=== PATIENT | female | born 1950 | race Caucasian/White ===

== ENCOUNTER → 2016-11-10 | Outpatient (CLI) | payer MEDICARE ==
[2014-10-01 20:41] VITALS: BP 164/73
--- NOTE | 2016-11-10 13:23 | KCIC ---
Bone mineral density exam History: Postmenopausal, osteopenia Comparison: 12/05/2013 Findings: Bone mineral density examination utilizing DEXA was performed. Left hip bone mineral density of 0.693 g/cm2 corresponds with a T score -2.0, Z score -0.6. Compared with previous exam, there has been -2.4% decrease. The bone mineral density of the lumbar spine was 0.822 g/cm2 which corresponds with a T-score of -2.0 . The age matched Z-score is -0.1 . Compared with the previous exam, there has been 2.5% increase. By World Congress on Osteoporosis criteria, a T score of 0 to-1 SD is considered to be within normal limits. A T score of -1 to -2.5 SD is considered osteopenia. A T score less than -2.5 SD is considered osteoporosis Impression: 1. There is osteopenia of the left hip and the lumbar spine. Electronically signed by: Levy Zhang MD (11/10/2016 1:20 PM) [id number]
--- NOTE | 2016-11-10 16:17 | KCIC ---
Bilateral digital screening mammograms: Reason for examination: Routine screening. Comparison is made to previous studies dated 03/29/2007 and 12/05/2013. The skin and nipples show no abnormalities. No abnormal axillary lymph nodes are seen. The breast parenchyma shows scattered fibroglandular density. (Breast density: Category B.) There continues to be some asymmetric parenchyma in the subareolar 12:00 position of the left breast which is unchanged. There are no new dominant masses, suspicious calcifications or architectural distortions. Some benign calcifications are present. Impression: No evidence of malignancy. Recommend routine screening. BI-RADS category 2: Benign "Our facility is accredited by the [employer] Mammography [employer]." This patient's information has been entered into a reminder system for the patient to be notified with the results of her examination and a target date for the next mammogram. Electronically signed by: Porsha Kapoor MD (11/10/2016 4:14 PM) [id number]
== END | disposition home or self-care (01) ==
LOC: KCIC MAMMO 12:38
PROVIDERS: ATTEND Family Medicine
DX: Z12.31 Encounter for screening mammogram for malignant neoplasm of breast (principal); N64.89 Other specified disorders of breast; M85.80 Other specified disorders of bone density and structure, unspecified site; Z78.0 Asymptomatic menopausal state
CPT/HCPCS: 77080; G0202; 77067

== ENCOUNTER → 2017-11-11 | Outpatient (CLI) | payer MEDICARE, OTHER ==
[2014-10-01 20:41] VITALS: BP 164/73
--- NOTE | 2017-11-11 11:58 | KCIC ---
Bilateral digital screening mammograms: Reason for examination: Routine screening. Comparison is made to previous studies dated 11/10/2016 and 12/05/2013. Interpretation was made with the benefit of CAD. The skin and nipples show no abnormalities. No abnormal axillary lymph nodes are seen. The breast parenchyma shows scattered fibroglandular density. (Breast density: Category B.) There are no dominant masses, suspicious calcifications or architectural distortions. Benign appearing calcifications are again seen. Impression: No evidence of malignancy. Recommend routine screening. BI-RADS Category 2: Benign. "Our facility is accredited by the [employer] Mammography [employer]." This patient's information has been entered into a reminder system for the patient to be notified with the results of her examination and a target date for the next mammogram. Electronically signed by: Porsha Kapoor MD (11/11/2017 11:54 AM) [id number]
== END | disposition home or self-care (01) ==
LOC: KCIC MAMMO 09:02
PROVIDERS: ATTEND Family Medicine
DX: Z12.31 Encounter for screening mammogram for malignant neoplasm of breast (principal); Z72.0 Tobacco use; Z90.710 Acquired absence of both cervix and uterus
CPT/HCPCS: 77067

== ENCOUNTER → 2020-06-08 | Outpatient (CLI) | payer OTHER ==
[2014-10-01 20:41] VITALS: BP 164/73
[~2020-06-08] MED LIST: LEVO112T49 PO; TRAZ-118 PO; UMEC1DIS IH
[2020-06-08] MEDS: IOHEXOL 300 MG/ML 100ML VIAL. IV ONE (10:03)
[2020-06-08] MEDS: IOHEXOL 240 MG/ML 50ML VIAL. PO ONE (10:04)
--- NOTE | 2020-06-08 10:52 | KCIC ---
EXAM: Abdomen and pelvis CT with intravenous contrast. HISTORY: Incisional hernia. TECHNIQUE: Computed tomographic images of the abdomen and pelvis were obtained following the administ ration of intravenous contrast. Multiplanar reformatting was performed. *One or more of the following individualized dose reduction techniques were utilized for this examina tion: 1. Automated exposure control. 2. Adjustment of the mA and/or kV according to patient size. 3. Use of iterative reconstruction technique. COMPARISON: None. FINDINGS: Evaluation of the lower thorax demonstrates peripheral predominant pleural parenchymal scar ring and atelectasis. No consolidation or pleural effusion is seen. There is a 3 mm nodular opacity w ithin the medial lingula which is likely due to adjacent scarring. No suspicious nodule is seen. Ther e is a tiny hiatal hernia. The heart is normal in size. No hepatic lesion is seen. The gallbladder, p ancreas, spleen, adrenal glands and kidneys are unremarkable. There is no appendicitis. There is a large amount of stool throughout the colon. There is sigmoid div erticulosis. The bladder is nearly empty. The uterus is absent. The ovaries are unremarkable. There is a fat-containing right inguinal hernia. The hernia sac measures 6.0 cm transaxially and the hernia defect measures approximately 2.3 cm transaxially. There is extension of a loop of small bowel to the hernia defect. However, the bowel does not herniate through the defect. There is no mechanica l obstruction or convincing incarceration. There is aortic and aortic branch vessel atherosclerosis. There is no lymphadenopathy. There are dege nerative changes throughout the spine. There is no suspicious osseous lesion. There are few benign [place]. IMPRESSION: 1. Moderate fat-containing right inguinal hernia. The hernia sac measures approximate 6.0 cm. There i s a loop of small bowel which extends to the hernia defect, but not through the hernia defect into th e hernia sac. There is no incarceration or mechanical obstruction. 2. Large amount of colonic stool. Correlate for constipation. 3. Sigmoid diverticulosis. 4. Tiny hiatal hernia. Electronically signed by: Camila Bynum MD (06/08/2020 10:50 AM) [id number]
== END ==
LOC: KCIC CT 08:05
PROVIDERS: ATTEND Surgery
DX: K40.90 Unilateral inguinal hernia, without obstruction or gangrene, not specified as recurrent (principal); K43.2 Incisional hernia without obstruction or gangrene; K57.30 Diverticulosis of large intestine without perforation or abscess without bleeding; K44.9 Diaphragmatic hernia without obstruction or gangrene
CPT/HCPCS: 74177; Q9966; Q9967

== ENCOUNTER 2020-07-27 08:00 | Day surgery (SDC) | payer MEDICARE, OTHER ==
[~2020-07-27] VITALS: Ht 157.5 cm; Wt 125.0 kg
[~2020-07-27 08:00] MED LIST changes: +ACETAMINOPHEN 500 MG TABLET PO PRN; +BUPIVACAINE-EPI 0.25% 30 ML VIAL KIT. ONE; +CALC-450 PO; +DIPH25CA58 PO; +HYDROmorphone 2 MG/ML VIAL IVP PRN; +IBUP-1027 PO; +IV RINGERS,LACTATED 1000ML 1,000 ML IV SCH; +LANS15CA5 PO; +MAGN400C PO; +MELA10TA3 PO; +MINERAL OIL for SURGERY 10 ML VIAL. MC ONE; +POLY17PO29 PO; +POTA8TAB46 PO; +PROVENTIL HFA6.7 G2 INH; +TIOT4MIS3 IH; +fentaNYL PF VIAL 100 MCG/2 ML VIAL IVP PRN; +levoFLOXacin 500mg PREMIX BAG. IV ONE
[2020-07-27 08:28] VITALS: BP 126/60
--- NOTE | 2020-07-27 09:21 | PDOC1 ---
History and Physical Date of Admission Date of Admission DATE: 07/27/20 TIME: 09:18 Identification/Chief Complaint Chief Complaint Right lower quadrant abdominal pain Source Source: Patient History of Present Illness History of Present Illness 69-year-old female with complaints of right lower quadrant abdominal pain CT scan showing right inguinal hernia with incarcerated small bowel. No evidence of obstruction Past Medical History Cardiovascular: No pertinent hx Pulmonary: COPD GI: No pertinent hx Heme/Onc: No pertinent hx Hepatobiliary: No pertinent hx Psych: No pertinent hx Rheumatologic: No pertinent hx Infectious disease: No pertinent hx ENT: No pertinent hx Renal/: No pertinent hx Endocrine: Hypothyroidism Dermatology: No pertinent hx Past Surgical History Past Surgical History: , Hysterectomy Family History Family History: No Significant Social History Smoke: Quit ALCOHOL: rare Drugs: None Current Medications Current Medications Current Medications Fentanyl Citrate (Fentanyl 2ml Vial) 25 mcg PRN Q5MIN PRN IVP MILD PAIN 1-3; Start 07/27/20 at 06:00; Stop 07/28/20 at 05:59 Fentanyl Citrate (Fentanyl 2ml Vial) 50 mcg PRN Q5MIN PRN IVP MODERATE PAIN 4- 6; Start 07/27/20 at 06:00; Stop 07/28/20 at 05:59 Morphine Sulfate (Morphine Sulfate) 1 mg PRN Q10MIN PRN IVP SEVERE PAIN 7-10; Start 07/27/20 at 06:00; Stop 07/28/20 at 05:59 Ringer's Solution 1,000 ml @ 30 mls/hr Q24H IV Last administered on 07/27/20at 08:36; Start 07/27/20 at 06:00; Stop 07/27/20 at 17:59 Hydromorphone HCl (Dilaudid) 0.5 mg PRN Q10MIN PRN IVP SEVERE PAIN 7-10, 2nd CHOICE; Start 07/27/20 at 06:00; Stop 07/28/20 at 05:59 Prochlorperazine Edisylate (Compazine) 5 mg PACU PRN PRN IVP NAUSEA, MRX1; Start 07/27/20 at 06:00; Stop 07/28/20 at 05:59 Levofloxacin/ Dextrose 100 ml @ 100 mls/hr 1X PREOP PRN IV PRIOR TO PROCEDURE; Start 07/27/20 at 06:00; Stop 07/27/20 at 18:00 Bupivacaine HCl/ Epinephrine Bitart (Sensorcain-Epi 0.25% Kit) 30 ml STK-MED ONCE .ROUTE ; Start 07/27/20 at 07:01; Stop 07/27/20 at 07:01; Status DC Mineral Oil (Muri-Lube) 10 ml STK-MED ONCE MC ; Start 07/27/20 at 07:01; Stop 07/27/20 at 07:01; Status DC Acetaminophen (Tylenol) 1,000 mg 1X PREOP PRN PO PRIOR TO PROCEDURE Last administered on 07/27/20at 08:39; Start 07/27/20 at 07:15; Stop 07/27/20 at 12:00 Active Scripts Active Reported Miralax (Polyethylene Glycol 3350) 17 Gm Powd.pack 1 Pkt PO DAILY Melatonin 10 Mg Tablet.er 10 Mg PO QHS Ibuprofen 400 Mg Tablet 400 Mg PO PRN Q6HRS PRN Caltrate 600 + D Soft Chew Tab (Calcium Carbonate/Vitamin D3) 1 Each Tab.chew 1 Each PO DAILY K-Tab ER (Potassium Chloride) 8 Meq Tablet.er 8 Meq PO PRN DAILY PRN Magnesium (Magnesium Oxide) 400 Mg Capsule 400 Mg PO PRN DAILY PRN Benadryl (Diphenhydramine Hcl) 25 Mg Capsule 25 Mg PO HS Lansoprazole 15 Mg Capsule.dr 15 Mg PO DAILY Stiolto Respimat Inhal Calder (Tiotropium Br/Olodaterol HCl) 4 Gm Mist.inhal 2 Sprays IH DAILY Proventil Hfa (Albuterol Sulfate) 6.7 Gm Hfa.aer.ad 2 Puff INH PRN Q6HRS PRN Trazodone Hcl 50 Mg Tablet 1 Tab PO QHS Levothyroxine Sodium 112 Mcg Tablet 1 Tab PO DAILY Allergies Allergies: Coded Allergies: Penicillins (Unverified Allergy, Intermediate, 07/27/20) Sulfa (Sulfonamide Antibiotics) (Unverified Allergy, Intermediate, 07/27/20) atorvastatin (Verified Adverse Reaction, Intermediate, 07/27/20) MUSCLE ACHES ROS Gastrointestinal: Yes Abdominal Pain Physical Exam General: Alert, Oriented X3, Cooperative, No acute distress HEENT: Atraumatic, EOMI Lungs: Clear to auscultation, Normal air movement Heart: RRR, no murmurs Abdomen: Normal bowel sounds, Soft, Other (Tender to palpation right lower quadrant) Rectal Exam: not examined Extremities: No edema Skin: No significant lesion Neuro: Normal speech Psych/Mental Status: Mental status NL Vitals Vitals Vital Signs Date Time Temp Pulse Resp B/P (MAP) Pulse Ox O2 Delivery O2 Flow Rate FiO2 07/27/20 08:32 98.1 89 20 126/60 97 Room Air 98.1 VTE Prophylaxis Ordered VTE Prophylaxis Devices: Yes VTE Pharmacological Prophylaxi: Contraindicated Assessment/Plan Assessment/Plan Right inguinal hernia by CT scan plan robotic assisted laparoscopic repair with mesh. Justifications for Admission Other Justification KEENAN JI MD Jul 27, 2020 09:21
[2020-07-27] MEDS ORDERED: ROCURONIUM 50 MG/5 ML VIAL. ONE (09:33)
[2020-07-27] MEDS ORDERED: LIDOCAINE 2% PF 5 ML VIAL. ONE (09:34)
[2020-07-27] MEDS ORDERED: PROPOFOL 10 MG/ML (20ML) VIAL. IV ONE (09:34)
[2020-07-27] MEDS ORDERED: ONDANSETRON PF 4 MG/2 ML VIAL. ONE (09:34)
[2020-07-27] MEDS ORDERED: SEVOFLURANE 61 TO 120 MINUTES. IH ONE (09:34)
[2020-07-27] MEDS ORDERED: KETOROLAC 30 MG/ML VIAL. ONE (09:34)
[2020-07-27] MEDS ORDERED: DEXAMETHASONE SOD PHOS 4 MG/ML VIAL ONE (09:34)
[2020-07-27] MEDS ORDERED: NEOSTIGMINE METHYLSULFATE 5 MG/5 ML SYRINGE. ONE (10:16)
[2020-07-27] MEDS ORDERED: GLYCOPYRROLATE 1 MG/5 ML VIAL. ONE (10:17)
--- NOTE | 2020-07-27 10:42 | PDOC4 ---
Operative Note Operative Note Date: July 272020 at 1039 Preoperative diagnosis: Incarcerated right inguinal hernia Postoperative diagnosis: The same Procedure: Robotic assisted laparoscopic right inguinal hernia repair with mesh Surgeon: Spencer Specimen: None Dictation: Patient is a 69-year-old female who is had complaints of right groin pain CT scan showed a right inguinal hernia with incarcerated omentum and possible small bowel. The procedure of robotic assisted laparoscopic right inguinal hernia repair with mesh was explained to the patient in detail risk benefits were also discussed including bleeding infection injury to intra- abdominal contents possible necessitating further open operations alternatives to this procedure also discussed with the patient who seemed to understand and gave both verbal and written consent to have the procedure performed. Patient was taken to the operating room placed in the supine position general anesthesia was initiated once patient was sleeping intubated her abdomen was prepped and draped usual sterile fashion using ChloraPrep. An area just above the umbilicus was injected with quarter percent Marcaine with epinephrine incision was made 11 blade scalpel and varies needle was placed within the abdomen creating pneumoperitoneum once this was complete 8 mm da Hever port was placed in the da Hever camera was placed within the abdomen which was inspected no other abnormalities were noted other than right inguinal hernia with incarcerated om entum. 8 mm da Hever port was placed in the right midabdomen and an 8 mm da Hever port was placed in the left midabdomen the da Hever robot was brought and docked all port sites surgeon went to the robotic console using a grasper and Endo Claudine scissors the hernia contents were reduced a incision was made in the peritoneum over the right groin this was propagated inferiorly reducing the hernia sac and contents. A large Bard 3D max mesh for the right side was placed over the hernia defect and the peritoneum was closed over the mesh with a running 2 OV lock absorbable suture. Suture was removed and the abdomen the pneumoperitoneum was reduced the da Hever robot was undocked from all ports and all ports were removed port sites were all closed with 4 subcuticular Monocryl Mastisol Steri-Strips and island dressings were applied. Patient was awakened and extubated in the operating room taken to recovery in stable condition all sponge instrument needle counts listed as correct estimated blood loss 5 mL KEENAN JI MD Jul 27, 2020 10:42
--- NOTE | 2020-07-27 10:43 | DISCH ---
DISCHARGE INSTRUCTIONS Condition on Discharge Condition on Discharge: Stable Activity After Discharge Activity Instructions for Disc: Avoid exertion Other activity instructions: No lifting more than 20 pounds for 2 weeks Diet after Discharge Diet after Discharge: Regular Wound Incision Care Other wound/incision instructi: Yudith shower in 24 hours Contacting the after DC Call your doctor for: If your condition worsens Follow-Up Follow up with: Dr. Ji in 2 weeks KEENAN JI MD Jul 27, 2020 10:43
[2020-07-27] MEDS ORDERED: MORPHINE SULFATE 2 MG/ML VIAL. ONE (11:00)
[2020-07-27] MEDS ORDERED: PROCHLORPERAZINE 10 MG/2 ML VIAL. ONE (11:00)
[2020-07-27] MEDS: MORPHINE SULFATE 2 MG/ML VIAL. IVP PRN ×2 (11:01→11:16)
[2020-07-27] MEDS: PROCHLORPERAZINE 10 MG/2 ML VIAL. IVP PRN ×2 (11:03→11:16)
[2020-07-27 11:22] VITALS: BP 153/69
[2020-07-27] MEDS ORDERED: oxyCODONE/APAP 5/325 1 TAB TABLET PO ONE (11:30)
== END 2020-07-27 11:56 | disposition home or self-care (01) ==
LOC: SURG 08:00
PROVIDERS: ATTEND Surgery
DX: K40.30 Unilateral inguinal hernia, with obstruction, without gangrene, not specified as recurrent (principal); J44.9 Chronic obstructive pulmonary disease, unspecified; M19.90 Unspecified osteoarthritis, unspecified site; E03.9 Hypothyroidism, unspecified; F32.9 Major depressive disorder, single episode, unspecified; Z90.710 Acquired absence of both cervix and uterus; Z98.890 Other specified postprocedural states; Z87.440 Personal history of urinary (tract) infections; Z79.899 Other long term (current) drug therapy; Z87.891 Personal history of nicotine dependence; Z88.0 Allergy status to penicillin; Z88.2 Allergy status to sulfonamides; Z88.8 Allergy status to other drugs, medicaments and biological substances
CPT/HCPCS: 49650; A4213; A4364; A4930; A6219; C1781; J0780; J1100; J1885; J1956; J2270; J2405; J2704; J2710; J3490; A4657